=== PATIENT | male | born 1970 | race African-American/Black ===

== ENCOUNTER 2018-08-31 09:32 | Emergency (ER) | payer MEDICAID ==
[~2018-08-31] VITALS: Ht 175.3 cm; Wt 70.0 kg
[2018-08-31] MEDS ORDERED: LORAZEPAM 2MG/ML CPJ IV ONE (10:00)
[2018-08-31 10:45] LABS: CHLORIDE 108 mEq/L (98-107)
[2018-08-31 10:52] LABS: ETHANOL BLOOD < 10 mg/dL
[2018-08-31 10:53] LABS: BASOPHILS % 0.3 % (0.0-2.0); EOSINOPHILS % 0.1 % (0.0-5.0); MEAN CORPUSCULAR HEMOGLOBIN 31.2 pg (28.0-32.0); MEAN CORPUSCULAR VOLUME 87.6 fL (80.0-94.0); MEAN PLATELET VOLUME 8.2 fl (7.4-10.4); MONOCYTES % 7.4 % (2.0-8.0); NEUTROPHILS % 81.2 % (40.0-76.0); PLATELET 205 x1000/uL (130-400); RED BLOOD CELL COUNT 5.14 mill/uL (4.7-6.1); RED CELL DISTRIBUTION WIDTH 13.6 % (11.6-14.6)
[2018-08-31] MEDS: LORAZEPAM 1MG TABLET PO NR ×2 (13:54→14:01)
[2018-08-31 14:13] VITALS: BP 125/79
== END 2018-08-31 13:00 | disposition home or self-care (01) ==
LOC: ER 09:51
DX: R07.89 Other chest pain (principal); R06.02 Shortness of breath; F15.10 Other stimulant abuse, uncomplicated; F17.200 Nicotine dependence, unspecified, uncomplicated
CPT/HCPCS: 36415; 71045; 83880; 84484; 93005; 99284; 99406

== ENCOUNTER 2019-01-09 12:36 | Emergency (ER) | payer MEDICAID ==
[~2019-01-09] VITALS: Ht 185.4 cm; Wt 77.0 kg
[2019-01-09] MEDS ORDERED: IBUPROFEN 600MG TABLET PO ONE (13:45)
[2019-01-09] MEDS ORDERED: HYDROCODONE/ACETAMINOPHEN 5/325MG TABLET PO ONE (13:45)
[2019-01-09 14:43] VITALS: BP 111/64
== END 2019-01-09 14:30 | disposition home or self-care (01) ==
LOC: ER 12:36
DX: R07.81 Pleurodynia (principal); W01.0XXA Fall on same level from slipping, tripping and stumbling without subsequent striking against object, initial encounter; Y93.89 Activity, other specified; Y92.89 Other specified places as the place of occurrence of the external cause
CPT/HCPCS: 71101; 99283